=== PATIENT | female | born 1945 | race Caucasian/White ===

== ENCOUNTER → 2016-08-14 | Outpatient (CLI) | payer MEDICARE ==
[2016-08-14 12:56] LABS: EKG EKG PERFORMED
[2016-08-14 13:16] LABS: CH 29.6; CHCM 34.4; HCT 48.6 % (34.0-46.0); HDW 2.87; HGB 16.7 gm/dL (11.4-16.0); MCH 29.6 pg (25.0-35.0); MCHC 34.2 g/dL (31.0-37.0); MCV 86.5 fL (80.0-100.0); Mean Platelet Volume 6.7; RBC 5.63 m/uL (3.80-5.40); RDW 13.2 % (11.5-15.5); WBC 6.9 k/uL (3.8-10.6)
[2016-08-14 13:19] LABS: Appearance,Urine Clear (Clear); Bacteria,Urine Rare /hpf; Bilirubin,Urine Negative (Negative); Glucose,Urine (UA) 3+ (Negative); Ketones,Urine Negative (Negative); Leukocyte Esterase,Urine Moderate (Negative); Mucus,Urine Rare /hpf; Nitrite,Urine Negative (Negative); PH, Urine 5.5 (5.0-8.0); Particle Count 2927; Protein,Urine 1+ (Negative); RBC,Urine 2 /hpf (0-5); Specific Gravity,Urine 1.015 (1.001-1.035); UA Billing (MACRO vs. MICRO) MICRO; Urobilinogen,Urine <2.0 mg/dL (<2.0); WBC,Urine 12 /hpf (0-5)
[2016-08-14 13:22] LABS: INR 1.2 (<1.1); Partial Thromboplastin Time 24.7 sec (22.0-30.0); Prothrombin Time 11.6 sec (9.0-12.0)
[2016-08-14 13:33] LABS: ALT 82 U/L (9-52); AST 95 U/L (14-36); Alkaline Phosphatase 97 U/L (38-126); Anion Gap 14 mmol/L; Blood Urea Nitrogen 12 mg/dL (7-17); Calcium 9.7 mg/dL (8.4-10.2); Carbon Dioxide 25 mmol/L (22-30); Chloride 103 mmol/L (98-107); Glucose 216 mg/dL (74-99); Non-African American GFR(MDRD) >60 (>60 ml/min/1.73 sqM); Potassium 4.1 mmol/L (3.5-5.1); Sodium 142 mmol/L (137-145); Total Bilirubin 0.8 mg/dL (0.2-1.3); Total Protein 8.3 g/dL (6.3-8.2)
== END | disposition home or self-care (01) ==
LOC: LABWHC1 12:47
PROVIDERS: ATTEND Orthopaedic Surgery
DX: Z01.810 Encounter for preprocedural cardiovascular examination (principal); Z01.812 Encounter for preprocedural laboratory examination
CPT/HCPCS: 36415; 80053; 81001; 85027; 85610; 85730; 87070; 93005

== ENCOUNTER 2016-08-31 06:14 | Inpatient (IN) | payer MEDICARE ==
[2016-08-19 13:04] VITALS: BMI 26.8
[~2016-08-31 06:14] MED LIST: ACETAMINOPHEN TAB 500 MG TAB PO ONE; HYDROmorphone 1 MG/ML 1 ML SYRINGE IVP PRN; MELOXICAM 7.5 MG TAB PO ONE; ONDANSETRON 4 MG/2 ML VIAL IVP ONE; TRANEXAMIC ACID 1,000 MG in SODIUM CHLORIDE 0.9% 100 ML IVPB ONE; ceFAZolin 2 GM in SODIUM CHLORIDE 0.9% 100 ML IVPB ONE
[2016-08-31] MEDS: LACTATED RINGERS 1,000 ML IV SCH ×4 (06:45→23:51)
[2016-08-31] MEDS: LIDOCAINE 1% 20 ML VIAL (10MG/ML) FOR IV START INTRADERMA PRN ×2 (07:06→07:12)
[2016-08-31 07:12] VITALS: RESP 16
[2016-08-31] MEDS ORDERED: MIDAZOLAM 2 MG/2 ML VIAL IV ONE (07:15)
[2016-08-31] MEDS ORDERED: PROPOFOL 10 MG/ML 20 ML VIAL IV ONE (07:58)
[2016-08-31] MEDS ORDERED: MIDAZOLAM 2 MG/2 ML VIAL ONE (07:58)
[2016-08-31] MEDS ORDERED: PHENYLEPHRINE-0.9% NACL SYG 1 MG/10 ML SYRINGE ONE (07:58)
[2016-08-31] MEDS ORDERED: ceFAZolin 3,000 MG in SODIUM CHLORIDE 0.9% IRRIGATIO 3,000 ML IRRIGATION ONE (07:58)
[2016-08-31] MEDS ORDERED: TRANEXAMIC ACID 1,000 MG/10 ML VIAL ONE (07:58)
[2016-08-31] MEDS ORDERED: fentaNYL (PF) 50 MCG/ML 2 ML AMP ONE (07:58)
[2016-08-31] MEDS ORDERED: SODIUM CHLORIDE 0.9% 100 ML BAG ONE (07:58)
[2016-08-31] MEDS: ROPIVACAINE 246.25 MG, EPINEPHrine 0.5 MG, KETOROLAC 30 MG, cloNIDine HCL/PF 80 MCG, WA... MISCELLANE ONE ×10 (08:24→09:23)
[2016-08-31] MEDS ORDERED: LACTATED RINGERS 1,000 ML IV ONE (08:45)
[2016-08-31 08:47] LABS: Glucose,Whole Blood 181 mg/dL (75-99)
--- NOTE | 2016-08-31 09:44 | P.OP ---
Date of Procedure: 08/31/16 Preoperative Diagnosis: Postoperative Diagnosis: Procedure(s) Performed: PREOPERATIVE DIAGNOSIS: Left knee severe osteoarthritis with genu varum POSTOPERATIVE DIAGNOSIS: Left knee severe osteoarthritis with genu varum OPERATION: Left knee cemented total replacement arthroplasty. ANESTHESIA: Spinal ESTIMATED BLOOD LOSS: 100 ml. CIRCUS RIDER: Mary Bueno PA-C (assistance with: patient positioning, retraction, exposure, hemostasis, leg positioning, implantation, irrigation, closure, dressing) COMPLICATIONS: None apparent. COMPONENTS IMPLANTED: Persona system from [employer] INDICATIONS: Mrs. Julian is a 71-year-old female with a history of left knee osteoarthritis. The operation of knee replacement has been discussed at length in the office, as well as potential risks and complications. These are inclusive of, but not limited to: bleeding, infection, scarring, discomfort, blood vessel and nerve damage, need for further surgery, failure to relieve symptoms, persistence, recurrence, or worsening of problems, loosening, dislocation, wear, blood clot, pulmonary embolism, , gait dysfunction, stiffness, and other risks as discussed in the office. The patient elects to proceed and the consent form has been signed. PROCEDURE: The patient was taken to the operating room and positioned on the operating room table in the supine position. Anesthesia was initiated. Care was taken to make sure that all pressure points were adequately padded. The operative lower extremity was prepped and draped in the usual aseptic fashion using ChloraPrep. Ioban drape was used for the case and the patient received intravenous antibiotics within one hour of the incision. A pneumotourniquet and leg kat were used for the case. The limb was exsanguinated with an Esmarch bandage and the tourniquet was inflated to 350 mmHg. Time-out was called confirming the patient's identity, side, procedure and administration of antibiotics. The incision was then created midline directly over the knee, carried down through skin and into the subcutaneous tissues and down to fascia. Full thickness subcutaneous medial flap was developed. Medial parapatellar arthrotomy was performed and the interior of the knee was inspected. There was end-stage osteoarthritis of the knee with a mild to moderate genu varum type deformity. The fat pad was excised and proximal medial release on the tibia was completed using meticulous dissection and a curved osteotome. The anterior cruciate ligament was taken down. Note was made of significant attrition of the anterior and significant degenerative appearance of the posterior cruciate ligaments. The exposure was excellent. The knee was flexed 90 degrees and the patella was everted. A spot was chosen on the femur approximately 1 cm anterior to the posterior cruciate ligament insertion and an intramedullary hole was created within the femur. The intramedullary guide was then set to 5 degrees of valgus. The distal cutting block was attached and pinned into position. An appropriate amount of distal femoral resection was set. The oscillating saw was then used to make the distal femoral cut. This cut was confirmed to be flat with the flat end of an osteotome. The retractors were placed around the tibia and the tibial surface was addressed. The angle and depth of resection was adjusted using an extramedullary cutting guide. The guide had a built-in 3 degree posterior slope cut. Once the cutting guide was adjusted appropriately and in line with the axis of the tibia and confirmed to be in good position in relation to the second metatarsal and transmalleolar axis, the tibial cut was then created with protection of the posterior neurovascular structures and the collateral ligaments. The tibial cut surface was removed and sized. Femoral sizing was then accomplished using anterior referencing. Care was taken to analyze the posterior condyles for signs of deficiency or severe wear, and adjustments to the guide were made, as appropriate. 3 degree external rotation pins were placed. The cutting jig for the femur was applied to these pins. The planned cuts were further analyzed prior to performing them with the oscillating saw. No femoral notching was produced. Bone fragments were removed and the cut surfaces were finished, as necessary, with a reciprocating saw. Spacer block technique was then used to confirm that the flexion and extension gaps were equal. Soft tissue releases and adjustment of the tibial and/or femoral cuts were made, as necessary, until the gaps were equal. This included release of the posterior cruciate ligament, which was tight in this patient and , if left unreleased, would have resulted in poor kinematics and possibly early loosening. The femur was then further finished for a posterior cruciate ligament substituting component. Patellar resurfacing was performed using a reamer. The size of the required patellar component was estimated and the patellar surface was then reamed down to a residual thickness which would recreate the [place] thickness with the component. The placement of the patellar component was influenced by the degree of patellar subluxation, if any, noted on the preoperative x-rays. Prior to placing trial components, anesthetic solution consisting of ropivicaine with epinephrine, ketorolac, and clonidine was injected carefully and methodically in a grid pattern using aspiration technique into the soft tissue around the knee circumferentially, starting with the deeper tissues first and progressing to fascia, and then finally the skin/subcutaneous tissue. Particular care was taken when injecting the posterior capsule. The trial components were inserted. The tibial tray was allowed to self center and the patella was noted to track very well. The position of the tibial component was marked and the tibia was then finished for a stemmed tibial component. Cement was mixed on the back table and applied to the final components. Trial components were removed and the cut surfaces of the bone were pulse lavaged thoroughly and dried. Cement was then applied to the tibial surface and pressurized into the surface using finger pressurization technique. The tibial component was then applied and excess cement was removed after it was impacted securely and noted to be flush with the cut surface. In similar fashion, the cement was applied to the cut femoral surface, pressurized in using finger pressurization and the component was impacted into place. Excess cement was removed. The polyethylene spacer was then implanted and locked into position. The patellar component was then applied in similar technique and a patellar clamp was used to hold the patella in place as the cement hardened. Once the cement had fully hardened, the knee was reinspected. Any other cement extrusion was removed and final kinematic testing showed range of motion from 0 to 130 degrees with excellent stability, both medially and laterally and appropriate alignment of the leg. Patellar tracking was excellent. The knee was then thoroughly pulse lavaged with normal saline. The tourniquet was deflated and hemostasis was obtained with electrocautery and IV tranexamic acid, 1 g given prior to inflation of the tourniquet and another gram given at the time of closure. Closure was with #2 Ethibond in the fascia and supplemented with #2 Quill, 2-0 Vicryl suture was used for the subcutaneous tissues and 3-0 Quill for the skin. Dermabond/Steri-Strips were then applied. A lightly compressive dressing was applied using Webril and an Dread wrap. The patient was then transferred to stretcher and taken to the recovery room in stable condition. Sponge and needle counts were correct. Implants: Indications for Procedure: Operative Findings: Description of Procedure:
[2016-08-31] MEDS ORDERED: TEMAZEPAM 15 MG CAP PO PRN (10:11)
[2016-08-31] MEDS ORDERED: ONDANSETRON 4 MG/2 ML VIAL IVP PRN (10:11)
[2016-08-31] MEDS ORDERED: NALOXONE 0.4 MG/ML 1 ML VIAL IV PRN (10:11)
[2016-08-31] MEDS ORDERED: HYDROmorphone 1 MG/ML 1 ML SYRINGE IVP PRN ×3 (10:11)
[2016-08-31] MEDS ORDERED: MAGNESIUM HYDROXIDE 2,400 MG/10 ML CUP PO PRN (10:11)
[2016-08-31] MEDS ORDERED: ACETAMINOPHEN TAB 325 MG TAB PO PRN (10:11)
[2016-08-31] MEDS ORDERED: BISACODYL 10 MG SUPP RECTAL PRN (10:11)
[2016-08-31] MEDS ORDERED: HYDROcodone/APAP 5-325MG 1 EACH TAB PO PRN (10:11)
[2016-08-31] MEDS ORDERED: NA PHOS,M-B/NA PHOS,DI-BA 133 ML ENEMA RECTAL PRN (10:11)
--- NOTE | 2016-08-31 10:37 | XR ---
Left knee HISTORY: Status post left knee arthroplasty 2 views of the left knee Patient is status post left knee arthroplasty. There is anatomic alignment. Lucency present in the so ft tissues compatible with postop state. Small ossific densities are likely postoperative about the k nee. IMPRESSION: Orthopedic follow-up.
[2016-08-31] MEDS ORDERED: FAMOTIDINE 20 MG TAB PO ONE (16:00)
[2016-08-31] MEDS: ceFAZolin 2 GM in SODIUM CHLORIDE 0.9% 100 ML IVPB SCH ×2 (16:04→23:49)
[2016-08-31] MEDS ORDERED: WARFARIN 5 MG TAB PO ONE (18:00)
[2016-08-31] MEDS ORDERED: SODIUM BICARBONATE PO PRN (19:00)
[2016-08-31] MEDS ORDERED: OMEPRAZOLE PO PRN (19:00)
[2016-08-31] MEDS: HYDROcodone/APAP 5-325MG 1 EACH TAB PO PRN (19:36)
[2016-08-31] MEDS ORDERED: PANTOPRAZOLE 40 MG TABLET PO PRN (21:00)
[2016-08-31] MEDS ORDERED: SENNOSIDES-DOCUSATE SODIUM 1 EACH TAB PO SCH (21:00)
[2016-09-01] MEDS: hydrOXYzine PAMOATE 25 MG CAP PO PRN ×2 (00:33→06:53)
[2016-09-01] MEDS: HYDROcodone/APAP 5-325MG 1 EACH TAB PO PRN ×2 (00:36→06:53)
[2016-09-01] MEDS: LACTATED RINGERS 1,000 ML IV SCH (06:44)
[2016-09-01 07:28] LABS: INR 1.7 (<1.1); Prothrombin Time 16.1 sec (9.0-12.0)
--- NOTE | 2016-09-01 07:41 | CONS ---
DATE OF CONSULTATION: 08/31/2016 REASON FOR CONSULTATION: Medical management requested by Dr. Andujar. CONSULTATION: This is a 71-year-old patient who has undergone left total knee arthroplasty. Post-procedure pain is controlled. No nausea or vomiting. No chest pain. Patient's chronic stable medical conditions include asthma, GERD, hyperlipidemia, osteoarthritis in multiple joints. REVIEW OF SYSTEMS: CONSTITUTIONAL: None. HEENT: None. RESPIRATORY: Occasional wheezing. CARDIOVASCULAR: None. GASTROINTESTINAL: Heartburn. GENITOURINARY: None. MUSCULOSKELETAL: Aches and pains especially in right knee and the hands. DERMATOLOGIC: None. HEMATOLOGIC: None. LYMPHATICS: None. PSYCHIATRY: None. NEUROLOGICAL: None. Past medical history of asthma, GERD, hypertension, osteoarthritis. PAST SURGICAL HISTORY: Cholecystectomy, hysterectomy, orthopedic surgery. SOCIAL HISTORY: Does not smoke or drink alcohol. . Family history of DVT, cancer. HOME MEDICATIONS: Norvasc 2.5 mg a day, Zegerid 1 capsule p.o. daily p.r.n., vitamin D3 two thousand units p.o. daily, Zyrtec 5 mg p.o. daily, aspirin 81 mg p.o. daily, Senokot-S 1 tablet p.o. b.i.d., [place] p.r.n. ALLERGIES: None. On examination, temperature 96.9, pulse 99, respirations 16, blood pressure 150/81, pulse ox 95% on 2 L. GENERAL APPEARANCE: Average build, lying in bed, comfortable. EYES: Pupils equal. Conjunctivae normal. HEENT: External appearance of nose and ears normal. Oral cavity normal. NECK: JVD not raised. Mass not palpable. RESPIRATORY: Effort normal. Lungs are clear. CARDIOVASCULAR: First and second sounds normal. No edema. ABDOMEN: Soft, nontender. Liver and spleen not palpable. LYMPHATIC: No lymph node palpable in neck or axillae. PSYCHIATRY: Alert and oriented x3, mood and affect normal. MUSCULOSKELETAL: Areas of osteoarthritis in the hands and right knee. INVESTIGATIONS: Accu-Cheks are noted. ASSESSMENT: 1. Left total knee arthroplasty. 2. Primary osteoarthritis of both the hands and right knee. 3. Intermittent asthma. 4. Gastroesophageal reflux disease. 5. Essential hypertension. PLAN: Home medications are resumed. Patient has got DVT prophylaxis as per Dr. August. Care was discussed with the patient. Questions were answered. Thank you, Dr. August.
[2016-09-01 07:55] LABS: Basophils % (A) 0 %; CH 29.4; CHCM 33.4; Eosinophils % (A) 0 %; HCT 39.1 % (34.0-46.0); HDW 2.72; Luc # (Auto) 0.09; Luc % (Auto) 1; Lymphocytes # (A) 0.4 k/uL (1.0-4.8); Lymphocytes % (A) 6 %; MCH 29.3 pg (25.0-35.0); MCHC 33.1 g/dL (31.0-37.0); MCV 88.4 fL (80.0-100.0); Mean Platelet Volume 7.1; Monocytes # (A) 0.4 k/uL (0-1.0); Monocytes % (A) 5 %; Neutrophils # (A) 6.8 k/uL (1.3-7.7); Neutrophils % (A) 88 %; RBC 4.43 m/uL (3.80-5.40); RDW 13.3 % (11.5-15.5); WBC 7.8 k/uL (3.8-10.6); WBC (Perox) 7.98
[2016-09-01 07:59] VITALS: BP 129/64; PULSE 90; TEMP 97.4
[2016-09-01] MEDS ORDERED: MELOXICAM 7.5 MG TAB PO SCH (09:00)
[2016-09-01] MEDS ORDERED: CHOLECALCIFEROL 1,000 UNIT TAB PO SCH (09:00)
[2016-09-01] MEDS ORDERED: amLODIPine 2.5 MG TAB PO SCH (09:00)
[2016-09-01] MEDS ORDERED: LORATADINE 10 MG TAB PO SCH (09:00)
[2016-09-01] MEDS ORDERED: FAMOTIDINE 20 MG TAB PO SCH (09:00)
--- NOTE | 2016-09-01 09:23 | P.DS ---
Providers Date of admission: 08/31/16 06:14 Expected date of discharge: 09/01/16 Attending physician: Rolly August Consults: 08/31/16 10:11 Consult Physician Routine Consulting Provider: Lance Almendarez Consult Reason/Comments: medical management Do you want consulting provider notified?: Yes Primary care physician: Rakesh Andujar - Discharge Diagnosis(es) (1) Primary osteoarthritis of left knee Current Visit: Yes Status: Acute (2) Status post left knee replacement Current Visit: Yes Status: Acute Hospital Course: This is a pleasant 71-year-old female last seen in our office with complaints of left knee pain. Patient has known history of degenerative arthritis of the left knee and presented to discuss options. After discussion and consideration , the patient elected to proceed with a left total knee arthroplasty. Patient was seen preoperatively, and medically cleared for surgery by her primary care physician. Patient was admitted to [facility] underwent left total knee arthroplasty on 08/31/[address] August. The procedure was performed without complications or sequelae. The patient is seen and evaluated at bedside today. Pain is well-controlled. Patient has no new complaints today and denies any fevers, chills, nausea, vomiting, or shortness of breath. Vital signs are stable. Dressing is clean dry and intact. Incision looks fine with no erythema or active drainage. Calf is soft and nontender. Patient has full foot and ankle motion without difficulty. Patient's left lower extremity is neurovascularly intact. The patient is orthopedically stable for discharge today. Pertinent Studies: Laboratory Tests 09/01/16 09/01/16 06:48 06:48 WBC 7.8 RBC 4.43 Hgb 13.0 D Hct 39.1 PT 16.1 H INR 1.7 Patient Condition at Discharge: Stable Plan - Discharge Summary New Discharge Prescriptions: New HYDROcodone/APAP 5-325MG [[place] 5-325] 1 - 2 each PO Q4-6H PRN #90 tab PRN Reason: Pain Sennosides-Docusate Sodium [Senokot-S] 1 tab PO BID #60 tablet Warfarin [Coumadin] 2.5 mg PO DAILY #1 tab No Action Cholecalciferol [Vitamin D3] 2,000 unit PO DAILY Aspirin 81 mg PO DAILY amLODIPine BESYLATE [Norvasc] 2.5 mg PO DAILY Omeprazole/Sodium Bicarbonate [Zegerid 20 mg Capsule] 1 cap PO DAILY PRN PRN Reason: Heartburn Cetirizine HCl [Zyrtec] 5 mg PO DAILY Discharge Medication List Aspirin 81 mg PO DAILY 08/19/16 [History] Cholecalciferol [Vitamin D3] 2,000 unit PO DAILY 08/19/16 [History] Omeprazole/Sodium Bicarbonate [Zegerid 20 mg Capsule] 1 cap PO DAILY PRN [History] amLODIPine BESYLATE [Norvasc] 2.5 mg PO DAILY 08/19/16 [History] Cetirizine HCl [Zyrtec] 5 mg PO DAILY 08/31/16 [History] HYDROcodone/APAP 5-325MG [[place] 5-325] 1 - 2 each PO Q4-6H PRN #90 tab 08/31/16 [Rx] Sennosides-Docusate Sodium [Senokot-S] 1 tab PO BID #60 tablet 08/31/16 [Rx] Warfarin [Coumadin] 2.5 mg PO DAILY #1 tab 08/31/16 [Rx] Follow up Appointment(s)/Referral(s): Mary Bueno, PAC [PHYSICIAN [employer] SALES CONSULTANT] - 2 Weeks Ambulatory/Diagnostic Orders: Continuous Passive Motion (CPM) Machine [DME.AMB1] Time Frame: 3 Weeks, Facility : [facility], Location: Case Management Prothrombin Time INR [LAB.AMB] Location: Determined By Patient Activity/Diet/Wound Care/Special Instructions: May bear wt as tolerated w walker May shower if no drainage from incision CPM 5-6 hours daily Discharge Disposition: HOME WITH HOME HEALTH SERVICES
[2016-09-01] MEDS ORDERED: MULTIVITAMINS, THERA 1 EACH TAB PO SCH (12:00)
--- NOTE | 2016-09-02 21:39 | PN ---
DATE OF SERVICE: 09/01/2016 PRESENTING COMPLAINT: Left knee surgery. INTERVAL HISTORY: This patient was seen and examined by me on 09/01/16. The patient is status post left knee surgery, doing well. No chest pain, shortness of breath. Stable. Tolerating a diet. Working with Physical Therapy. Review of systems done for constitutional, cardiovascular, GI, pulmonary, psychiatry, musculoskeletal; relevant findings as above. Current medications are reviewed. On examination, temperature 97.4, pulse 90, respiration 16, blood pressure 129/64, pulse ox 95% on room air. GENERAL APPEARANCE: Sitting up, comfortable. EYES: Pupils equal. Conjunctivae normal. NECK: JVD not raised. RESPIRATORY: Effort normal. Lungs are clear. CARDIOVASCULAR: First and second sounds normal. No edema. ABDOMEN: Soft. Non-tender. Liver and spleen not palpable. PSYCHIATRY: Alert and oriented x3. Mood and affect normal. INVESTIGATIONS: Hemoglobin 13. ASSESSMENT: 1. Left total knee arthroplasty. 2. Primary osteoarthritis of both knees. 3. Intermittent asthma. 4. Gastroesophageal reflux disease. 5. Essential hypertension. PLAN: Patient is stable. Continue current medication and treatment plan. On day of discharge, she will follow up with her family doctor.
== END 2016-09-01 13:29 | disposition home health service (06) | DRG 470 ==
LOC: 2ORMAIN 06:14 → 3SUR 10:03
PROVIDERS: ADMIT Orthopaedic Surgery; ATTEND Orthopaedic Surgery
PROC: 0SRD0J9 Replacement of Left Knee Joint with Synthetic Substitute, Cemented, Open Approach (ICD-10-PCS; principal; 2016-08-31 08:00)
DX: M17.12 Unilateral primary osteoarthritis, left knee (principal); I10 Essential (primary) hypertension; E78.5 Hyperlipidemia, unspecified; J45.20 Mild intermittent asthma, uncomplicated; K21.9 Gastro-esophageal reflux disease without esophagitis; Z79.82 Long term (current) use of aspirin; Z82.49 Family history of ischemic heart disease and other diseases of the circulatory system; M21.162 Varus deformity, not elsewhere classified, left knee; Z79.899 Other long term (current) drug therapy
CPT/HCPCS: 85025; 85610; 88300